=== PATIENT | male | born 1965 | race American Indian/Alaskan Native ===

== ENCOUNTER 2017-07-12 09:46 | Emergency (ER) | payer SELFPAY ==
[2017-07-12 10:08] VITALS: BP 157/105
== END 2017-07-12 12:56 | disposition left against medical advice (07) ==
LOC: ED 09:46
DX: R07.89 Other chest pain (principal); Z53.21 Procedure and treatment not carried out due to patient leaving prior to being seen by health care provider
CPT/HCPCS: 93005; 93010

== ENCOUNTER 2017-08-28 07:03 | Emergency (ER) | payer OTHER ==
[2017-08-28 07:15] VITALS: BP 160/107
[2017-08-28] MEDS ORDERED: TYLENOL PO ONE (09:34)
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
--- NOTE | 2017-08-28 10:14 | XRay Report ---
RIGHT WRIST, 4 VIEWS: History: Right wrist pain, history of gout. Normal bone mineralization. Moderate osteoarthritic changes are identified. The scapholunate interval appears increased suggesting scapholunate ligament injury. No evidence for fracture, dislocation or bony erosions. Vascular calcifications are noted in the anterior soft tissues suggesting diabetes or peripheral vascular disease. IMPRESSION: Osteoarthritis. Question scapholunate ligament injury/rupture. This is likely chronic.
== END 2017-08-28 10:57 | disposition home or self-care (01) ==
LOC: ED 07:03
DX: M25.531 Pain in right wrist (principal); I10 Essential (primary) hypertension
CPT/HCPCS: 99283